=== PATIENT | male | born 1995 | race Caucasian/White ===

== ENCOUNTER 2017-12-04 19:00 | Emergency (ER) | payer BC ==
[2017-12-04 19:11] VITALS: BP 130/64
[2017-12-04] MEDS ORDERED: CEPHALEXIN 500MG PREPACK#4 BTL TAKEHOME ONE (19:51)
--- NOTE | 2017-12-04 19:53 | EDPHY ---
H & P Smoking Status: Never smoked Time Seen by Provider: 12/04/17 19:06 HPI/ROS: CHIEF COMPLAINT: Right thigh laceration HISTORY OF PRESENT ILLNESS: 22-year-old male presents to the emergency department laceration to his right thigh. The patient was trying to climb over a wrought iron fence last night around 7:00 p.m., 24 hr ago. He denies hitting his head or losing consciousness. He complains of isolated pain to the right thigh. He is able to ambulate. He did try washing the area with some alcohol. He believes his tetanus shot is current. Denies any other trauma or injury. ROS: Denies retained foreign body, numbness or tingling in his toes. Denies pain in his right knee or thigh. (Rachell Washingtonrindevonte Quick) Past Medical/Surgical History: Asthma, celiac disease (Rachell Washingtonreji Quick) Social History: [employer] student (Rachell Washingtonreji Quick) Physical Exam: On examination the patient has a 4 cm gaping laceration to the posterior aspect of the right mid thigh. There is no active bleeding noted. No evidence of retained foreign body. He does have some surrounding ecchymosis. No surrounding redness or signs of infection. Full range of motion of his right lower extremity. Normal gait. No palpable bony tenderness. (Disha Washington) Constitutional: Initial Vital Signs Temperature (C) 36.4 C 12/04/17 19:08 Heart Rate 92 12/04/17 19:08 Respiratory Rate 16 12/04/17 19:08 Blood Pressure 130/64 H 12/04/17 19:08 O2 Sat (%) 94 12/04/17 19:08 O2 Delivery Mode Room Air Allergies/Adverse Reactions: gluten Allergy (Verified 12/04/17 19:11) Home Medications: Medication Instructions Recorded Albuterol 12/04/17 Cephalexin [Keflex] 500 mg PO QID #28 cap 12/04/17 MDM/Departure - MDM Procedures: Verbal consent was obtained from the patient. The 4 cm gaping laceration on the right posterior thigh was anesthetized using 1% lidocaine with epinephrine. The wound was irrigated with saline, draped and explored to its base with a gloved finger. There were no deep structures involved. No tendon injury was identified. No sutures placed. The patient will be brought back to the emergency department for delayed primary closure after antibiotics for 72 hr. The procedure was performed by myself. (Rachell Washingtonrina Ynes) Medications Given: Discontinued Medications Cephalexin (Keflex 500 Mg Prepack#4) 1 btl DANNY EDNOW ONE PRN Reason: Protocol Stop: 12/04/17 19:52 Last Admin: 12/04/17 20:03 Dose: 1 btl ED Course/Re-evaluation: 22-year-old male presents with right thigh injury. I do not think x-rays are indicated. The patient has no palpable bony tenderness. He has full range of motion is right lower extremity. The patient presents however 24 hr after his injury. He understands the risks of infection. I recommended delayed primary closure. He will be started on oral Keflex. He will return to the emergency department after he has been on oral antibiotics for at least 72 hr. The wound was anesthetized with 1% lidocaine with epinephrine and was thoroughly irrigated in the emergency department. Bacitracin and dressing applied. (Rachell Washingtonrina Ynes) - Depart Disposition: Home, Routine, Self-Care Clinical Impression: Laceration of right thigh Qualifiers: Encounter type: initial encounter Qualified Code(s): S71.111A - Laceration without foreign body, right thigh, initial encounter Condition: Good Instructions: Laceration (ED), Acute Wounds (ED) Additional Instructions: Because your wound is 24 hr old, it is recommended that you take Keflex, antibiotic, for 72 hr and then return to the emergency department for closure of your wound. Return to the emergency department sooner if you notice any signs or symptoms of infection such as redness, swelling, increased pain, fever , purulent drainage. Ibuprofen 600 mg every 8 hr as needed for pain. Prescriptions: Cephalexin [Keflex] 500 mg PO QID #28 cap Referrals: Lyric Celaya MD [Medical Doctor] - As per Instructions (Primary care provider monotype caster)
== END 2017-12-04 20:02 | disposition home or self-care (01) ==
PROC: 0HQHXZZ Repair Right Upper Leg Skin, External Approach (ICD-10-PCS; principal; 2017-12-04)
DX: S71.111A Laceration without foreign body, right thigh, initial encounter (principal); J45.909 Unspecified asthma, uncomplicated; W26.8XXA Contact with other sharp object(s), not elsewhere classified, initial encounter; Y99.8 Other external cause status; Y93.39 Activity, other involving climbing, rappelling and jumping off

== ENCOUNTER → 2018-06-21 | Outpatient (CLI) | payer BC | LOC: BMCIMAGING 16:56 | PROVIDERS: ATTEND Family Medicine | DX: Z03.89 Encounter for observation for other suspected diseases and conditions ruled out (principal) ==